=== PATIENT | male | born 1995 | race Caucasian/White ===

== ENCOUNTER 2021-10-28 19:20 | Emergency (ER) | payer BC ==
[2021-10-28 19:28] VITALS: BP 141/94; PULSE 93
== END 2021-10-28 19:46 | disposition home or self-care (01) ==
LOC: CC.ED 19:20
DX: S61.412A Laceration without foreign body of left hand, initial encounter (principal); Z88.0 Allergy status to penicillin; W26.8XXA Contact with other sharp object(s), not elsewhere classified, initial encounter
CPT/HCPCS: 12002; 99282-25; 99283